=== PATIENT | male | born 1975 | race Caucasian/White ===

== ENCOUNTER → 2019-08-07 | Outpatient (REF) ==
--- NOTE | 2019-08-07 14:07 | REP ---
Right knee series: Five views. History: Degenerative disease. Findings: Five views of the right knee demonstrate normal bones, joints, and soft tissues. No evidence of arthropathy, fracture or joint effusion. Impression: Normal radiographs of the right knee. Electronically Signed by Chava Leyva MD 08/07/2019 01:58 P
== END ==
LOC: M SMT 11:01
PROVIDERS: ATTEND Internal Medicine
DX: Z02.71 Encounter for disability determination (principal)